=== PATIENT | male | born 1950 | race Caucasian/White ===

== ENCOUNTER → 2016-08-19 | Outpatient (CLI) | payer MEDICARE, BC ==
--- NOTE | 2016-08-19 18:17 | RADRPT ---
PROCEDURE: XR Right hip and pelvis. CLINICAL INDICATION: Right hip pain. Pelvic pain. TECHNIQUE: Two views. Frontal pelvis and lateral right hip. COMPARISON: No prior studies are available for comparison. FINDINGS: There is no fracture or dislocation. The soft tissues are normal. There are degenerative changes of both hips with joint space narrowing and osteophytes with right wo rse than left. The upper pelvis is not included on the images. There is no lytic or blastic lesion. IMPRESSION: 1. Moderate degenerative changes of both hips, right worse than left. 2. Upper pelvis not included on the images. RPTAT: QQ .Дмитрий Miller MD, MD Date Time Electronically viewed and signed by .Дмитрий Miller MD, MD on 08/19/2016 18:17 .R/
--- NOTE | 2016-08-19 18:17 | RADRPT ---
PROCEDURE: Left knee radiographs. CLINICAL INDICATION: Left knee pain. TECHNIQUE: Three views. Weight bearing. Frontal, lateral, and patellar view. COMPARISON: No prior studies are available for comparison. FINDINGS: There is no fracture or dislocation. The soft tissues are normal. There are degenerative changes with osteophytes arising from all 3 joint compartment margins. There is medial and lateral joint space narrowing and osteophytes with mild deformity. There is no lytic or blastic lesion. There is no radiopaque foreign body. IMPRESSION: 1. Severe degenerative changes of the left knee. RPTAT: QQ .Дмитрий Miller MD, MD Date Time Electronically viewed and signed by .Дмитрий Miller MD, on 08/19/2016 18:17 .R/
--- NOTE | 2016-08-20 06:43 | HKNOTE ---
DATE OF SERVICE: 08/19/2016 REFERRING PHYSICIAN: Chad Plunkett MD MAIN COMPLAINT: 1. Pain in the lower back. 2. Pain in the right hip. 3. Pain in the left knee. HISTORY OF MAIN COMPLAINT: The patient is a 65-year-old male who complains of pain in all the above areas. The patient's problems have been present in 1 or another for at least 10 years. His back p ain has been present for longest time. The patient's groin pain came on gradually over the last 5 y ears and has become progressively worse. His left knee pain seemed to start after he had 2 arthrosc opic surgeries on the left knee by Dr. Roderick Arango in the . The patient has multiple joint problems further including both thumbs and both shoulders. He has had blood tests for arthritis and was diagnosed as having osteoarthritis. The patient has had multiple epidural injections in his mateusz mbar spine over the years. The last was [address] Haines which gave him no relief. The doctor admitted that he had a hard time getting into the "proper space." The epidural injections g ave him some relief. He now has pain pretty much all the time. PRESENT COMPLAINTS: 1. Lower back. The pain in his lower back seems to be restricted to the lower back area with some radiation to both buttocks. No radiation down either leg. The patient gets numbness and tingling i n both legs in the mornings. The pain varies from mild to severe. The pain is not aggravated by co ughing, sneezing, or straining at stool. 2. Right hip. The patient gets pain in the right groin. The pain radiates down the anterior aspec t of the right thigh to just above the knee. He limps much of the time. He does not use a walking aid. He used to be able to walk for 45 minutes every day without stopping. Now, he cannot walk mor e than about [address] before he has to stop. When he gets to that point, he gets kip n in the right groin with every step that he takes. 3. Left knee. The left knee swells. It does not lock or feel unstable. He gets some pain in the left knee virtually with every step. MEDICATIONS: He takes various medications includin. Antiinflammatory medications. 2. Oxycodone. 3. He applies Butrans patches. None of these give him very much relief. The patient has a long history of problems with his lower back and cervical spine. He has been diag nosed as having spinal stenosis at both levels. He has not had an MRI scan of the lumbar spine for more than 2 years. He limps all the time. His leg lengths feel equal. He cannot clip his toenails . He can put on his shoes and socks. SPORTING ACTIVITIES: None. PAST ORTHOPEDIC HISTORY: 1. Two arthroscopic surgeries on the left knee in the . 2. Foot surgery to both thumb joints in 1994. PRIOR CORTISONE INTAKE: The patient has had at least 10 lumbar epidural injections in total. Dr. Malcolm day also gave him cortisone injections into his knee. ALCOHOL INTAKE: Minimal. OTHER JOINT PROBLEMS: As above. BLOOD TESTS FOR ARTHRITIS: Negative for rheumatoid. PRIOR INJURIES TO HIPS OR KNEES: None. WORK STATUS: The patient is a retired salesman. PAST MEDICAL HISTORY: 1. Hypertension. 2. Thyroid. 3. Hepatitis C. 4. Obesity. PAST SURGICAL HISTORY: 1. Tonsils and adenoids removed as a child. 2. Left knee arthroscopies x2. 3. Umbilical hernia surgery. 4. Nasal cyst surgery by Dr. Chad Plunkett. 5. Right thumb surgeries in 1994. 6. Trigger finger releases, both hands, 2015. DRUG ALLERGIES: NONE. MEDICATIONS: 1. Furosemide 40 mg twice a day. 2. Levothyroxine 200 mcg daily. 3. Metoprolol 25 mg twice a day. 4. Potassium capsules 10 mg twice a day. 5. Ranitidine 300 mg a day. 6. Simvastatin 40 mg a day. 7. Sertraline 100 mg a day. 8. Spironolactone 50 mg twice a day. 9. Tamsulosin 0.4 mg daily. 10. Triazolam 0.25 mg at bedtime. 11. Valacyclovir 500 mg daily. 12. Valsartan 160-25 mg daily. 13. Victoza 1.8 daily. 14. Multivitamins once a day. 15. Vitamin D3 50 international units a week. 16. Vitamin C 1000 mg daily. PREVIOUS MAJOR INJURIES: Slip and fall in 1994, fractured sternum. FAMILY HISTORY: Father at 97 of heart problems and a stroke. Mother at 87 of stroke. SYSTEMS REVIEW: Current dizzy spells, heartburn, history of skin cancer, varicose veins, tingling s ensations in hands and legs, gait disturbance from above the affected joints and balance problems. High blood pressure, urinary retention, ankles swell from time to time, history of peptic ulcer. HABITS: The patient quit smoking 2 years ago. Alcohol intake: None. PRIMARY CARE PHYSICIAN: Dr. Mora PHYSICAL EXAMINATION: GENERAL: The patient is a markedly overweight 65-year-old male. VITAL SIGNS: Height 5 feet 6 inches, weight 222 pounds. Blood pressure 105/60, temperature 98.5. Pulse 75 per minute, respirations 12 per minute. GAIT: The patient's gait is antalgic. He walks without a walking aid. BACK: Dynamic pain assessment reveals a pain free range of motion in flexion 50%, extension 50%, la teral bending, and rotation. Inspection of the spine reveals pain in the lower back at all limits of motion. No list. There is no lumbar paraspinal muscle spasm. The pelvis is level. Facet stress jonh t is negative bilaterally. Palpation of the spine demonstrates no tenderness of the spinous processe s, facet joints, sacroiliac joint, sciatic notch, or posterior thigh. NEUROLOGIC: Motor examination reveals no muscle deficit in the lower extremities. Deep tendon refle xes in the lower extremities: Right knee jerk plus, left knee jerk plus, right ankle jerk plus, lef t ankle jerk plus. Straight leg raising is negative bilaterally at 80 degrees. Lasegue and MARIYA jonh ts are negative. RIGHT HIP: Flexion 95, external rotation 35, internal rotation 10, abduction 30, adduction 20. Mar ked pain in the right groin at all limits of motion. No tenderness anywhere around either hip. LEFT HIP: A full range of motion without pain. No tenderness anywhere around either hip. RIGHT KNEE: The right knee shows normal alignment. Active and passive extension is 0 degrees. Activ e and passive flexion is 135 degrees. The medial and lateral collateral ligaments and cruciate ligam ents are intact. Amarilis test is negative. There is no effusion, tenderness, scarring, crepitus, or cysts. The patella tracks normally. There is no tenderness on the articular surface of the patella o r in the patellar groove. The Q angle is normal. LEFT KNEE: The left knee shows normal alignment. Extension lacks 15 degrees. Flexion is to 105 deg esvin. The medial and lateral collateral ligaments and cruciate ligaments are intact. Amarilis test i s negative. There is 6+ crepitus in the knee under the patella, 2+ effusion. Marked pain at the salazar its of motion. There is no tenderness, scarring, or cysts. The patella tracks normally. There is no tenderness on the articular surface of the patella or in the patellar groove. The Q angle is normal . IMAGING: Plain x-rays of his pelvis and hips obtained today at the [facility] we re reviewed. These show severe narrowing of both hip joints. The right femoral head is bone on bon e with the acetabulum and there are multiple cysts in the femoral head at the joint line. Plain x-rays of the left knee obtained today at the [facility] (3 views) reviewed . These shows severe degenerative changes in all 3 compartments. All 3 compartments have bone-on-b one contact throughout and very large osteophytes, subchondral sclerosis, and intraosseous cyst form ation. An MRI scan of the hips obtained in May 2016 brought with him on a disk were reviewed (no report a vailable). These show severe narrowing of both hip joint spaces. The right hip shows intraosseous cyst formations along almost the entire superior joint line. There is an area in the superior femor al head suggestive of osteonecrosis. MRI scan of the lumbar spine: The patient had recent lumbar MRI scan on an open MRI scan by ca leo of his who is a radiologist. The patient did not bring either the images or a report with him, bu t he says that he will try to obtain these. DISCUSSION: A 65-year-old male with multiple joint involvements who has had negative tests for rheu matoid arthritis. The patient has multiple including diabetes and obesity as well as hypothyroidism and hypercholester olemia. He also has hepatitis C. His main problem at the present time is his lumbar spine pain. However, he has severe arthritis of both his right hip and his left knee. The patient is advised that there is no doubt that he will need to have a right hip and a left knee replacement sooner or later. His main problem at present is the lumbar spine which needs to be full y evaluated by a environmental programs specialist. FINAL DIAGNOSES: 1. Chronic/acute low back pain. 2. Severe degenerative osteoarthritis of the right hip. 3. Severe degenerative osteoarthritis of the left knee. 4. Hypertension. 5. Hypothyroid. 6. Hepatitis C. 7. Morbid obesity. 8. Multiple arthritic joints. The operation of total hip and total knee were discussed with the patient in a fair amount of detail . Including some of the major possible complications were discussed with the patient. The patient was given my manual titled "Arthritis of the Hip Joint" which contains information yeison rning the various alternatives of treatment. It includes various forms of conservative treatment, in cluding the use of nonsteroidal anti-inflammatory medications and their dangers. Various surgical al ternatives are discussed. The technique of total hip replacement is discussed in detail, including p ossible complications. Included also is a section on the possible complications of blood transfusion , a section on postoperative precautions, and an exercise program to follow at home after total hip replacement. The long-term care of a total hip replacement implant is also covered in detail. The dick hardik was instructed to read this manual in its entirety since it is, in and of itself, a form of in formed consent. After reading this manual, the patient will make a list of further questions that ma y not have been covered adequately. The patient was further advised that this manual, although exhau stive in nature, is only intended to supplement and complement a one-on-one discussion with me. The patient was given my manual titled "Arthritis of the Knee Joint" which contains information conc erning the various alternatives of treatment. It includes various forms of conservative treatment, i ncluding the use of nonsteroidal anti-inflammatory medications and their dangers. Various surgical a lternatives are discussed. The technique of total knee replacement is discussed in detail, including possible complications. Included also is a section on the possible complications of blood transfusi on, a section on postoperative precautions, and an exercise program to follow at home after total kn ee replacement. The long-term care of a total knee replacement implant is also covered in detail. Th e patient was instructed to read this manual in its entirety since it is, in and of itself, a form o f informed consent. After reading this manual, the patient will make a list of further questions shahriar t may not have been covered adequately. The patient was further advised that this manual, although e xhaustive in nature, is only intended to supplement and complement a one-on-one discussion with me. The patient is being referred to Dr. Jose Willett for a complete spine evaluation. Thereafter, he will return to me for scheduling of his right hip replacement. Dictated By: OSMIN JACOBO/MOISES Conf#: [id number] DID#: [id number]
== END | disposition home or self-care (01) ==
LOC: HKI 15:00
DX: M25.551 Pain in right hip (principal); M25.562 Pain in left knee; M54.5 Low back pain; M16.11 Unilateral primary osteoarthritis, right hip; I10 Essential (primary) hypertension; E03.9 Hypothyroidism, unspecified
CPT/HCPCS: 20610; 73502; 73562; G0463